=== PATIENT | female | born 1995 | race Two or more races ===

== ENCOUNTER 2020-03-09 11:35 | Emergency (ER) | payer OTHER ==
[2020-03-09 12:29] VITALS: BP 117/67
[2020-03-09] MEDS ORDERED: ACETAMINOPHEN 325 MG TAB PO ONE (13:30)
[2020-03-09] MEDS ORDERED: TETANUS-DIPTH-ACEL PERTUSSIS 0.5ML SYR Tdap IM ONE (13:30)
== END 2020-03-09 14:23 | disposition home or self-care (01) ==
LOC: ER 11:35
DX: S61.300A Unspecified open wound of right index finger with damage to nail, initial encounter (principal); W31.89XA Contact with other specified machinery, initial encounter; Y93.89 Activity, other specified; Y92.89 Other specified places as the place of occurrence of the external cause; Y99.0 Civilian activity done for income or pay
CPT/HCPCS: 73140; 90471; 90715